=== PATIENT | female | born 1955 | race African-American/Black ===

== ENCOUNTER 2017-11-17 10:55 | Emergency (ER) | payer OTHER ==
[2017-11-17 10:59] VITALS: BP 160/84; BMI 32.9
--- NOTE | 2017-11-17 11:21 | DR.EXTPAIN ---
HPI - Time seen Time seen: 11:15 - PCP Primary Care Physician: [facility] - HPI Comment HPI Comment: EDIL 3 wk ago, stumbled while walking outside. Went to [place] got Xrays, all - acute fx per pt. Still swollen, painful. Came today for reeval. - Complaint/Symptoms Chief Complaint:: PT. C/O RIGHT HAND AND ARM PAIN S/P FALL THAT OCCURED 3 WEEKS AGO. PT. HAS BEEN TAKING IBURPOFEN OTC FOR PAIN RELIEF. - Nurses notes reviewed Nurses Notes Review: Yes - Source History Provided: Patient - Mode of arrival Mode of Arrival: Ambulatory - Timing Onset of Chief Complaint: 10/27/17 PMH - PMH Past Medical History: Yes (rt handed) Past Medical History: Arthritis, Migraines, Hypertension, Hypothyroidism, Seizures Past Surgical History: Yes Surgical History: BUSINESS OBJECTS Surgery, Other Past Surgical History Comment: BACK SURGERY, 2 ECOPTIC PREGNANCIES - Family History History of Family Medical Conditions: No - Social History Does patient currently use any type of tobacco product: No Have you used tobacco products in the last 12 months: No Type of Tobacco Use: None Does any household member use tobacco: No Alcohol Use: None Do you use any recreational Drugs:: No Lives With: Family Lives Where: Home - infectious screening In the last 2 months have you had wt loss of >10#?: NO Have you had fever, night sweats or hemotysis?: No Have you traveled outside the country in the last 6 months?: No Isolation: Standard ROS - Review of Systems Constitutional: No Symptoms Reported Eyes: No Symptoms Reported ENTM: No Symptoms Reported Respiratoy: No Symptoms Reported Cardiovascular: No Symptoms Reported Gastrointestinal/Abdominal: No Symptoms Reported Genitourinary: No Symptoms Reported Neurological: No Symptoms Reported Musculoskeletal: Joint Pain, Joint Swelling, Right, Forearm, Wrist Integumentary: No Symptoms Reported Hematologic/Lymphatic: No Symptoms Reported Endocrine: No Symptoms Reported Psychiatric: No Symptoms Reported All Other Systems: Reviewed and Negative PE - Vital Signs Vitals: Temperature 97 F Pulse Rate 66 Respiratory Rate 17 Blood Pressure 160/84 O2 Sat by Pulse Oximetry 100 - General Limitations: No Limitations General Appearance: Alert, In No Apparent Distress - Head Head Exam: Normal Inspection - Eyes Eye exam: Normal Appearance - Neck Neck Exam: Normal Inspection, Trachea Midline - Respiratory Respiratory Exam: Normal Lung Sounds Bilat Respiratory Exam: Bilateral Clear to Auscultation - Cardiovascular Cardiovascular Exam: Regular Rate, Normal Rhythm - Abdominal Exam Abdominal Exam: Normal Bowel Sounds, Soft. negative: Tenderness - Upper Extremities Shoulder Exam: Normal Inspection, Full ROM. negative: Tenderness, Swelling, Deformity, Dislocation, Erythema Arm Exam: Normal Inspection, Full ROM. negative: Tenderness, Swelling Elbow Exam: Normal Inspection, Full ROM. negative: Tenderness, Swelling Forearm Exam: Tenderness (rt wrist tender and swollen, no palp bony deformity), Swelling Hand Exam: Full ROM (full ROM but with pain, good cap refill), Tenderness, Swelling Neuromotor Exam: Wrist Extension, Thumb Opposition Neurosensory Exam: Normal Exam, Radial Nerve, Ulnar Nerve Upper Ext. Vascular Exam: Capillary Refill, Radial Pulse, Ulnar Pulse - Lower Extremities Gait Exam: Observed and Normal - Neurological Neurological Exam: Alert, Oriented X3 - Psychiatric Psychiatric Exam: Normal Affect, Normal Mood - Skin Skin Exam: Warm, Dry, Intact, Normal Color ROR - XRAY XRAY Findings: rt wrist &FA both - acute - Diagnosis Discharge Problem: Right wrist sprain - Discharge Plan Disposition: 01 HOME, SELF-CARE Condition: Stable Prescriptions: Ketorolac Tromethamine [Toradol Tab] 10 mg PO Q8H PRN #12 tab PRN Reason: Pain - Follow ups/Referrals Follow ups/Referrals: N[facility],None [Primary Care Provider] - 3 days - Instructions
--- NOTE | 2017-11-17 12:29 | RAD ---
HISTORY: Right wrist pain. Complete radiographic series of the right wrist. Findings: No evidence for a displaced fracture or dislocation can be identified. The carpal bones ap pear well aligned. No focal joint erosions are observed to suggest an inflammatory arthritis. The vis ualized distal radius and ulna are unremarkable. No significant soft tissue abnormality can be ident ified. However, if the patient has focal anatomic snuffbox tenderness, then repeat plain film imaging in 10-14 days or assessment with MRI imaging of the right wrist would be helpful to exclude an occul t scaphoid fracture. No other bony or soft tissue abnormalities are seen, however. The DRUJ appears i ntact. IMPRESSION: 1. Negative exam for acute fracture or dislocation, as above. Reported By:
--- NOTE | 2017-11-17 12:32 | RAD ---
History: Forearm pain. Exam: AP and lateral views right forearm. Findings: The radius and ulna both are intact. There is no evidence for an acute fracture or dislocat ion of either the proximal or distal radius or ulna. The DRUJ and elbow joints are both intact. What is visible of the carpal bones shows no acute fracture/ bony abnormality. No unexpected radiopaque fo reign bodies are seen. No focal soft tissue swelling is evident. Impression: Negative right forearm radiography. Reported By:
== END 2017-11-17 13:03 | disposition home or self-care (01) ==
LOC: ER 11:07
PROC: 2W39X1Z Immobilization of Left Upper Extremity using Splint (ICD-10-PCS; principal; 2017-11-17)
DX: S63.501A Unspecified sprain of right wrist, initial encounter (principal); W10.8XXA Fall (on) (from) other stairs and steps, initial encounter; Y92.89 Other specified places as the place of occurrence of the external cause
CPT/HCPCS: 73090; 73100; 99282